=== PATIENT | female | born 1965 | race Two or more races ===

== ENCOUNTER 2024-04-01 11:14 | Emergency (ER) | payer MEDICAID ==
[~2024-04-01] VITALS: Ht 154.9 cm; Wt 67.0 kg
[2024-04-01 12:08] LABS: Urine Bacteria None Seen /hpf (None Seen)
[2024-04-01 12:29] LABS: Basophils # (auto) 0 10 ^3/uL (0-0.2); Basophils % (auto) 0.6 % (0.0-2.0); Eosinophils # (auto) 0 10 ^3/uL (0-0.8); Eosinophils % (auto) 0.8 % (0.0-7.0); Hematocrit 38.7 % (36.0-46.0); Hemoglobin 13.6 g/dL (12.2-16.2); Lymphocytes # (auto) 1.1 10 ^3/uL (0.4-5.4); Lymphocytes % (auto) 19.2 % (10.0-50.0); Mean Corpuscular Hgb Conc. 35.1 g/dL (32.0-36.0); Mean Corpuscular Volume 88.4 fL (80.0-100.0); Monocytes # (auto) 0.3 10 ^3/uL (0-1.3); Monocytes % (auto) 4.7 % (0.0-12.0); Neutrophils # (auto) 4.2 10 ^3/uL (1.6-8.6); Neutrophils % (auto) 74.7 % (37.0-80.0); Nucleated Red Blood Cells % 0.1 %; Platelet Count (auto) 181 10^3/uL (140-450); Red Blood Cells 4.38 10^6/uL (4.0-5.20); Red Cell Distribution Width 13.9 % (11.8-14.3); White Blood Cell 5.7 10^3/uL (4.4-10.8)
[2024-04-01 12:29] LABS: Urine Blood 1+ /uL (Negative); Urine Clarity Clear (Clear); Urine Color Light-Yellow (Yellow); Urine Protein, UAD Negative (Negative); Urine Specific Gravity 1.012 (1.001-1.035); Urine Urobilinogen Normal (Negative); Urine WBC 3 /hpf (0 - 5)
[2024-04-01 12:44] LABS: Alanine Aminotransferase 19 U/L (7-40); Albumin 4.1 g/dL (3.2-4.8); Alkaline Phosphatase 93 U/L (46-116); Anion Gap 11 (5-15); Aspartate Aminotransferase 32 U/L (13-40); BUN/Creatinine Ratio 26.2 (10.0-20.0); Bilirubin, Total 0.8 mg/dL (0.2-1.0); Blood Urea Nitrogen 22 mg/dL (9-23); Calcium 9.1 mg/dL (8.7-10.4); Carbon Dioxide 23 mmol/L (20-30); Chloride 105 mmol/L (98-107); Glucose 172 mg/dL (74-106); Potassium 3.8 mmol/L (3.5-5.1); Sodium 139 mmol/L (136-145); Total Protein 6.4 g/dL (5.7-8.2)
[2024-04-01 15:03] VITALS: BP 168/64; RESP 17; TEMP 98.9; O2SAT 97
[2024-04-01] MEDS: SODIUM CHLORIDE 0.9% 500 ML IV ONE (15:03)
[2024-04-01 15:37] VITALS: PULSE 69
[2024-04-01] MEDS ORDERED: CEPH500C PO (16:33)
== END 2024-04-01 16:43 | disposition home or self-care (01) ==
LOC: ER 11:14
DX: R42 Dizziness and giddiness (principal); E86.0 Dehydration; N39.0 Urinary tract infection, site not specified; I10 Essential (primary) hypertension; E11.9 Type 2 diabetes mellitus without complications; Z90.49 Acquired absence of other specified parts of digestive tract
CPT/HCPCS: 36415; 80053; 81001; 82962; 84484; 85025; 93005; 96360; 99284; J7040